=== PATIENT | female | born 2005 | race Caucasian/White ===

== ENCOUNTER 2024-04-25 19:30 | Observation (INO) | payer MEDICAID, SELFPAY ==
--- NOTE | 2024-04-25 | DI.US.S_ITS ---
PROCEDURE: US OB LIMITED INDICATIONS: RIGHT FLANK PAIN; UNCERTAIN DATES OUTSIDE/PRIOR DATING DATA: The calculations are made using the working COREY of 06/27/2024. TECHNIQUE: Real-time scanning was performed of the fetus, with image documentation and biometric measurements. Endovaginal scanning: Not performed COMPARISON: None. FINDINGS: General: A single living intrauterine gestation is present. Presentation: Vertex. Placenta: Placental position is left posterior fundal , without previa. Amniotic fluid index: 14.2 cm, normal range is 5-24 cm. Single deepest vertical pocket is 4.7 cm. heart rate: 163 beats per minute. Maternal cervical canal: 2.9 cm long. Normal lower limit is 2.5 cm. biometrics: Biparietal diameter: 7.9 centimeters, 31 weeks 6 days Head circumference: 28.7 centimeters, 31 weeks 4 days Abdominal circumference: 25.5 centimeters, 29 weeks 5 days Femur length: 5.9 centimeters, 30 weeks 6 days Composite gestational age from present scan: 31 weeks 0 days Estimated weight and percentile: 1570 grams Other: Moderate to severe right-sided pelvocaliectasis of the right maternal kidney. IMPRESSION: Single living intrauterine at 31 weeks 0 days, COREY of 06/27/2024. No abnormality detected. Moderate to severe right-sided maternal pelvocaliectasis, probably physiologic but an obstructive etiology is not excluded. We strive to produce accurate, complete, and clear reports of imaging services. To assist us in improving patient care, this report was composed using standard report templates and voice recognition software. Therefore, it may contain abnormal punctuation, insertions and/or omissions. Occasional wrong-word or sound-alike substitutions may occur. Though we review the report and make efforts to correct it, we do recommend that the report be read carefully in proper context to recognize any text inaccuracies. Dictated by: Tulio Ruiz M.D. on 04/25/2024 at 21:50 Approved by: Tulio Ruiz M.D. on 04/25/2024 at 21:53
--- NOTE | 2024-04-25 20:13 | P.TNLD_ITS ---
Visit Information Visit Information Date of evaluation: 04/25/24 On-call OB Provider: Ophelia West Reason for Evaluation: Yes other Comments/Additional reasons for admission: Right upper quadrant pain in with no care Vital Signs Vital Signs: Blood pressure 118/58, pulse 120, temperature 97.4? Review of Systems Review of Systems Narrative: Patient denies headaches. Denies fevers. Patient states pain started in the left lower quadrant 3 days ago. Pain is now in the right upper quadrant radiating from her back around to the front. She is nauseated. She denies any problems with urination. She feels constipated and has not had a bowel movement today. Baby is moving well. No vaginal bleeding or leakage of fluid. Exam Vital Signs (past 8 hours): Blood pressure 118/50 pulse 120, temperature 97.4 Narrative Exam Narrative: HEENT exam within normal limits. Lungs are clear to auscultation percussion. Heart is regular rate and rhythm. Abdomen is gravid. No tenderness to the uterus. Tenderness in the right upper quadrant without rebound. Extremities without edema and nontender. Objective Imaging US - abdomen: My impression: I watched the ultrasound with the senior technical business analyst. She states normal-appearing gallbladder. Hydronephrosis. Fetus is vertex, size equal to stated EDC of 07/02/2024 30 weeks 2 days. Normal amniotic fluid and posterior left-sided placenta. Labs 04/25/24 20:33 04/25/24 20:33 Evaluation Evaluation Baseline heart rate: 140 Variability: Moderate (11-25) monitor accelerations: Present Monitor Decelerations: Absent Contraction Frequency (minutes): 0 Category of Tracing: Reactive Status: Category l Diagnosis, Plan/Disposition Final Diagnosis (1) 30 weeks gestation of : Status: Acute (2) Upper abdominal pain of unknown etiology: Status: Acute (3) Hydronephrosis determined by ultrasound: Status: Acute (4) Urinary tract infection affecting , antepartum: Status: Acute Plan/Disposition Plan: Keflex for urinary tract infection. Push fluids. Rest on left side to decrease pressure on right urinary collection system causing hydronephrosis. OB Disposition: home
[2024-04-25 20:53] LABS: Add Manual Diff / Slide Review NO; Basophils Absolute Auto 0 /uL (0-100); Basophils Percent Auto 0.2 % (0-2); Eosinophils Absolute Auto 0 /uL (0-450); Eosinophils Percent Auto 0.4 % (2-4); Hemoglobin 11.3 g/dL (12.0-16.0); Lymphocytes Absolute Auto 1500 /uL (1100-4500); Lymphocytes Percent Auto 11.9 % (25-40); Mean Corpuscular HGB Conc 34.1 % (30-36); Mean Corpuscular Hemoglobin 30.6 PG (26-34); Mean Corpuscular Volume 89.7 fL (80-100); Monocytes Absolute Auto 1000 /uL (0-900); Monocytes Percent Auto 7.8 % (3-14); Neutrophils Absolute Auto 9900 /uL (1500-7000); Neutrophils Percent Auto 79.7 % (50-75); Platelet Count 309 X10^3/uL (150-400); Red Blood Cell Count 3.68 X10^6/uL (4.0-5.2); Red Cell Distribution Width 12.3 % (11.6-14.8); White Blood Cell Count 12.4 X10^3/uL (4.5-11.0)
[2024-04-25 20:58] LABS: Alanine Aminotransferase 15 IU/L (<35); Albumin 3.9 g/dL (3.5-5.0); Alkaline Phosphatase 110 U/L (38-126); Aspartate Aminotransferase 19 IU/L (14-36); BUN Creatinine Ratio 9.3 (6-22); Bilirubin Total 0.4 mg/dL (0.2-1.3); Blood Urea Nitrogen 4 mg/dL (7-17); Calcium 8.9 mg/dL (8.4-10.2); Carbon Dioxide 20 mmol/L (22-32); Chloride 102 mmol/L (98-107); Estimated Glomerular Filt Rate > 60 mL/min (>60); Globulin 3.9 g/dL (1.7-4.1); Glucose 96 mg/dL (70-100); HEMOLYSIS < 15 (0-50); Potassium 3.7 mmol/L (3.4-5.1); Sodium 132 mmol/L (137-145); Total Protein 7.8 g/dL (6.3-8.2)
[2024-04-25] MEDS: ACETAMINOPHEN 325 MG TABLET 650 MG PO (21:49)
[2024-04-25 22:02] LABS: Bilirubin Urine UA NEGATIVE (NEGATIVE); Color Urine UA YELLOW; Glucose Urine UA NEGATIVE (Negative); Ketones Urine UA 2+ (NEGATIVE); Leukocyte Esterase Urine UA 3+ (NEGATIVE); Nitrite Urine UA NEGATIVE (Negative); Occult Blood Urine UA 1+ (Negative); Protein Urine UA 2+ (Negative); Specific Gravity Urine UA 1.015 (1.000-1.035); Urobilinogen Urine UA 0.2 E.U./dL (0.2)
[2024-04-25 22:05] LABS: Ur Creatinine Normal (Normal); Ur Specific Gravity Normal (Normal); Urine Amphetamines Negative (Negative); Urine Barbiturates Negative (Negative); Urine Benzodiazepines Negative (Negative); Urine Cocaine Negative (Negative); Urine MDMA Negative (Negative); Urine Methadone Negative (Negative); Urine Methamphetamines Negative (Negative); Urine Opiates Negative (Negative); Urine Oxycodone Negative (Negative); Urine Phencyclidine Negative (Negative); Urine THC Negative (Negative); Urine Tricyclic Antidepressant Negative (Negative); Urine pH Normal (Normal)
[2024-04-25 22:12] LABS: Appearance Urine UA Cloudy; pH Urine UA 6.5 (4.5-8.0)
[2024-04-25 22:18] LABS: Bacteria Urine Many (>30); Culture Indicated Urine Specimen Cultured; RBC Urine None Seen (0-5/HPF); Squamous Epithelial Cell Urine 0-1 /HPF (0-5/HPF); Urine Volume 10mL (spun); WBC Urine 10-30/HPF (0-5/HPF)
[2024-04-25] MEDS: cephALEXin 250 MG CAP PREPACK 1 BOTTLE MISC (22:39)
[2024-04-26 16:52] LABS: Hepatitis B Surface Antigen NEGATIVE s/c (NEGATIVE); Rubella Antibody IgG 13.8 IU/mL (>15)
[2024-04-28 06:37] LABS: RPR Screen Non Reactive (Non Reactive)
== END 2024-04-25 22:40 | disposition home or self-care (01) ==
PROVIDERS: Admitting Provider Specialist; Referring Provider Specialist; Visit Provider Specialist
DX: O99.891 Other specified diseases and conditions complicating pregnancy (principal); R10.11 Right upper quadrant pain; N13.30 Unspecified hydronephrosis; O23.43 Unspecified infection of urinary tract in pregnancy, third trimester; N39.0 Urinary tract infection, site not specified; O26.893 Other specified pregnancy related conditions, third trimester; O09.33 Supervision of pregnancy with insufficient antenatal care, third trimester; Z3A.30 30 weeks gestation of pregnancy
CPT/HCPCS: 36415; 59025; 76815; 80053; 80055; 80305; 81003; 81015; 87077; 87086; 87186; G0378; G0379

== ENCOUNTER → 2024-05-08 15:18 | Outpatient (CLI) | payer MEDICAID, SELFPAY ==
[2024-05-08 17:12] LABS: Add Manual Diff / Slide Review NO; Basophils Absolute Auto 0 /uL (0-100); Basophils Percent Auto 0.3 % (0-2); Eosinophils Absolute Auto 100 /uL (0-450); Eosinophils Percent Auto 0.8 % (2-4); Hemoglobin 10.8 g/dL (12.0-16.0); Lymphocytes Absolute Auto 1700 /uL (1100-4500); Lymphocytes Percent Auto 17.3 % (25-40); Mean Corpuscular HGB Conc 34.9 % (30-36); Mean Corpuscular Hemoglobin 31.2 PG (26-34); Mean Corpuscular Volume 89.3 fL (80-100); Monocytes Absolute Auto 600 /uL (0-900); Monocytes Percent Auto 5.9 % (3-14); Neutrophils Absolute Auto 7500 /uL (1500-7000); Neutrophils Percent Auto 75.7 % (50-75); Platelet Count 316 X10^3/uL (150-400); Red Blood Cell Count 3.47 X10^6/uL (4.0-5.2); Red Cell Distribution Width 12.7 % (11.6-14.8); White Blood Cell Count 9.9 X10^3/uL (4.5-11.0)
[2024-05-08 17:28] LABS: GTT (PREG) 1 Hour PP 50gm Dose 100 mg/dL (76-139)
[2024-05-08 17:59] LABS: Urine N gonorrhoeae NOT DETECTED
[2024-05-08 18:02] LABS: Urine Chlamydia NOT DETECTED
[2024-05-09 06:36] LABS: RPR Screen Non Reactive (Non Reactive)
[2024-05-09 08:11] LABS: Varicella IgG Antibody Reactive (Non Reactive)
[2024-05-11 15:51] LABS: Hepatitis B Surface Antigen NEGATIVE s/c (NEGATIVE); Rubella Antibody IgG 13.2 IU/mL (>15)
[2024-05-11 16:11] LABS: HIV 1 & 2 Ab/Ag 4th Gen Combo NEGATIVE (NEGATIVE); Hep C Virus Ab w/Reflex Quant NEGATIVE s/c (NEGATIVE)
== END ==
PROVIDERS: Referring Provider Student in an Organized Health Care Education/Training Program; Visit Provider Student in an Organized Health Care Education/Training Program
DX: O09.33 Supervision of pregnancy with insufficient antenatal care, third trimester (principal); Z11.3 Encounter for screening for infections with a predominantly sexual mode of transmission; Z3A.32 32 weeks gestation of pregnancy
CPT/HCPCS: 36415; 80055; 82950; 86787; 86803; 86850; 86900; 86901; 87077; 87086; 87186; 87389; 87491; 87591

== ENCOUNTER 2024-05-17 17:34 | Outpatient (CLI) | payer MEDICAID, SELFPAY ==
[2024-05-17 19:14] LABS: Influenza A - CEPHEID Flu A NEGATIVE (NEGATIVE); Influenza B - CEPHEID Flu B NEGATIVE (NEGATIVE); Respiratory Syncytial Virus Negative (Negative)
[2024-05-17 19:15] LABS: COVID-19 CEPHEID 4-PLEX PCR Negative (Negative)
== END 2024-05-17 18:30 | disposition home or self-care (01) ==
LOC: OB 05-18 11:44
PROVIDERS: Referring Provider Obstetrics & Gynecology; Visit Provider Obstetrics & Gynecology
DX: O26.893 Other specified pregnancy related conditions, third trimester (principal); O09.33 Supervision of pregnancy with insufficient antenatal care, third trimester; R11.2 Nausea with vomiting, unspecified; R19.7 Diarrhea, unspecified; R10.9 Unspecified abdominal pain; Z3A.34 34 weeks gestation of pregnancy
CPT/HCPCS: 0241U; 59025; 99281; G0378; G0379

== ENCOUNTER 2024-05-17 18:35 | Emergency (ER) | payer MEDICAID, SELFPAY ==
[2024-05-17 18:39] VITALS: BP 117/67; PULSE 115; RESP 18; TEMP 36.6; O2SAT 98; BMI 243.5
--- NOTE | 2024-05-17 18:54 | ED_ITS ---
HPI - General Adult General Chief complaint: Extremity Injury, Upper Stated complaint: Sent from L&D,31wk Preg; Flu-Like Symptoms Time Seen by Provider: 05/17/24 18:41 Source: patient, family, RN notes reviewed and old records reviewed Mode of arrival: Wheelchair Limitations: language barrier (use assembler wet wash line) History of Present Illness HPI narrative: 18-year-old female A1 with complaint of cough, nasal congestion, sore throat yesterday but not today and discomfort in her epigastric area when she coughs. Patient states no fevers. Has had nasal congestion on symptoms for about 2 days. She describes nasal drainage. She had a sore throat yesterday but not today. She describes cough is nonproductive. No chest pain, no shortness of breath, no nausea or vomiting. No diarrhea or constipation. No urinary symptoms. She has not had any contractions denies abdominal pain. Denies new swelling of her extremities. Patient is on folic acid and vitamin. No known drug allergies. Was seen in [facility] prior to evaluation in the emergency department and cleared to be evaluated in the ED. L&D did send a 4 Plex respiratory swab Related Data Home Medications Medication Instructions Recorded Confirmed vitamin-ferrous sulfate tab PO 04/30/24 05/08/24 27 mg iron-folic acid 0.8 mg tablet Previous Rx's Medication Instructions Recorded acetaminophen 325 mg tablet 650 mg (2 x 325 mg) PO Q4H PRN 04/25/24 Fever/Mild Pain (1-3) #20 tabs cephalexin 500 mg capsule 500 mg PO BID #20 caps 04/25/24 Allergies Allergy/AdvReac Type Severity Reaction Status Date / Time No Known Drug Allergies Allergy Verified 05/08/24 14:33 Review of Systems Review of Systems ROS Unobtainable: All systems reviewed & are unremarkable except as noted in HPI and below Patient History Surgical History H/O dilation and curettage Family History Grandmother Diabetes mellitus Aunt Diabetes mellitus Family/Other Cancer Social History marital status: unmarried,living together number of children: 0 household members: spouse and friend(s) lives independently: Yes caregiver/support person: No housing: house pets and animals: No education level: high school occupational status: unemployed current occupational exposures/hazards: No special trina needs: No travel history: recent (domestic only) seatbelt use: always water heater temp set < 120 deg: Yes working smoke detector in home: No fire extinguisher in home: No carbon monox detector in home: No firearms in home: No do you feel safe at home: Yes Smoking Status: Never smoker second hand exposure: No alcohol intake: former substance use type: does not use well-balanced diet: daily or most days daily servings fruits/ve or more times/day caffeine: No Type(s) of exercise: walking additional social history: Until recently, pt was living with her mother, seems to have been in [place] although the story is a bit difficult to navigate. Pt's mother kicked her and her s/o out of the house and they came up here to live with a friend or family member of her s/o's. Pt refers to him as her spouse but states that they are not legally . Since being kicked out of her mother's home, she is no longer in contact with her and has no relationship with her father (parents are legal NOK), states that she would identify her maternal grandfather (lives in [place]) as her closest relative as he was the one who raised her from 19 months old. Smoking Status: Never smoker Substance Use Type: does not use Exam Narrative Exam Narrative: GEN: well nourished, well appearing female, alert and oriented x 3, patient appears to be in mild distress. HEENT: Atraumatic, pupils are equal round reactive to light, extraocular movements are intact, patient was bilateral nasal congestion, TMs are clear with no fluid, there is no conjunctival pallor. Throat is clear without any exudates, noerythema, tonsillar enlargement or uvular deviation, no stridor or muffled voice HEART: Regular rate and rhythm without murmur, clicks, rubs. LUNGS:Lungs clear to auscultation, no wheezes, rales, crackles, chest moves symmetrically ABD:bowel sounds normal, soft, non-tender, no guarding, rebound, rigidity, no masses noted, no hepatosplenomegaly :No CVA tenderness, gravid, nontender size appropriate for dates. MSCL: Non-tender, no muscle atrophy, muscles strength 5/5 upper and lower extremities, full range of motion, normal gait NEURO:CN 2-12 intact, sensation normal Initial Vital Signs Initial Vital Signs: Vital Signs Temperature 97.8 F 05/17/24 18:39 Pulse Rate 115 H 05/17/24 18:39 Respiratory Rate 18 05/17/24 18:39 Blood Pressure 117/67 05/17/24 18:39 Pulse Oximetry 98 05/17/24 18:39 Oxygen Delivery Method Room Air 05/17/24 18:39 Course Orders Ordered: ED Orders 05/17/24 18:51 Consult to SOLUTION DEVELOPER - Erosion Control Specialist Stat Vital Signs Vital signs: Vital Signs - 8 hr 05/17/24 18:39 Temperature 97.8 F Pulse Rate 115 H Respiratory Rate 18 Blood Pressure 117/67 Pulse Oximetry 98 Oxygen Delivery Method Room Air Medical Decision Making MDM Narrative Medical decision making narrative: 18-year-old female with a exam consistent with upper respiratory infection. Patient is overall well-appearing. She was at L&D prior to this and cleared. They obtained a covid/ influenza/RSV Is negative. patient has a nasal congestion but otherwise lungs are clear she was otherwise well-appearing felt appropriate for discharge home can take Tylenol as needed for fevers or discomfort with return precautions reviewed. Patient did note some issues with the access to transportation, SOLUTION DEVELOPER was not available to meet with them but they will reach out tomorrow. Discharge Plan Departure Patient Disposition: Home Clinical Impression: Upper respiratory infection Instructions: DI for Viral Upper Respiratory Infection -- Adult Activity Restrictions/Additional Instructions: Please follow up for recheck if you are not feeling improved in the next week. Upper respiratory infections typically last about 7-10 days total. Your COVID/influenza/ RSV swab was negative but are were many other viral illnesses that can cause your symptoms. A germination worker should reach out to in the next to 2 days to discuss access to transportation. You can take acetaminophen up to a 1000 mg every 6 hours as needed for pain and/ or fevers. Please avoid ibuprofen, Motrin, naproxen or Aleve. Please return if you have new chest pain or shortness of breath, lightheadedness or passing out, new abdominal pain, persistent vomiting, difficulty breathing or other new or concerning changes. Prescriptions: No Action vit-ferrous sulfat-FA 27 mg iron- 0.8 mg tablet PO acetaminophen 325 mg Tablet 650 mg PO Q4H PRN (Reason: Fever/Mild Pain (1-3)) Qty: 20 0RF cephalexin 500 mg capsule 500 mg PO BID Qty: 20 0RF Referrals: Miscellaneous,Doctor, MD [Primary Care Provider] - Stand Alone Forms: Patient Portal/API/Survey
== END 2024-05-17 19:31 | disposition home or self-care (01) ==
PROVIDERS: Emergency Provider Emergency Medicine
DX: O99.513 Diseases of the respiratory system complicating pregnancy, third trimester (principal); R05.9 Cough, unspecified; R10.13 Epigastric pain; Z3A.31 31 weeks gestation of pregnancy

== ENCOUNTER → 2024-05-20 07:07 | Outpatient (CLI) | payer MEDICAID, SELFPAY ==
--- NOTE | 2024-05-20 07:10 | DI.US.S_ITS ---
PROCEDURE: US OB >= 14 WEEKS FETUS INDICATIONS: Anatomy scan, no care. Late transfer OUTSIDE/PRIOR DATING DATA: Last menstrual period (LMP): Unknown LMP-based estimated date of delivery (COREY): Unknown The calculations are made using the working COREY of 06/27/2024. TECHNIQUE: Real-time scanning was performed of the fetus, with image documentation and biometric measurements. Endovaginal scanning: Not performed COMPARISON: [facility], OB LIMITED, 04/25/2024, 21:03. FINDINGS: General: A single living intrauterine gestation is present. Presentation: Vertex Placenta: Placental position is posterior, without previa. Amniotic fluid index: 13.8 cm, normal range is 5-24 cm. Single deepest vertical pocket is 4.1 cm. heart rate: 140 beats per minute. Maternal cervical canal: Not well seen. biometrics: Biparietal diameter: 8.5 cm, 34 weeks, 1 day. Head circumference: 30.8 cm, 34 weeks, 3 days. Abdominal circumference: 29.9 cm, 33 weeks, 6 days. Femur length: 6.1 cm, 31 weeks, 4 days. Clinically estimated gestational age: 34 weeks, 4 days Composite gestational age from present scan: 33 weeks, 4 days. Estimated weight and percentile: 2158 g, 14% Anatomic survey: Neuro: Not evaluated Nuchal skin fold: Not evaluated Face: Nose and lips, facial profile are normal. Spine: No evidence for spina bifida. Heart: 4-chambered heart is present, with normal ventricular outflow tracts. Diaphragm: Diaphragm is intact. Stomach: Left-sided stomach is present. Kidneys: No hydronephrosis. Normal is less than 5 mm in 2nd trimester, less than 7 mm in 3rd trimester. Cord: 3-vessel cord has orthotopic insertion. Bladder: Normal in size. Extremities: All 4 extremities identified. IMPRESSION: 1. Single live intrauterine gestation with fetus in vertex presentation. heart rate is 140 beats per minute. Normal LISSETTE at 13.8 cm. Estimated weight is at 14%. 2. Slightly limited evaluation due to late gestational age. neural structures and no cul skin full are not evaluated on this study. Rest of the anatomic survey is normal. We strive to produce accurate, complete, and clear reports of imaging services. To assist us in improving patient care, this report was composed using standard report templates and voice recognition software. Therefore, it may contain abnormal punctuation, insertions and/or omissions. Occasional wrong-word or sound-alike substitutions may occur. Though we review the report and make efforts to correct it, we do recommend that the report be read carefully in proper context to recognize any text inaccuracies. Dictated by: Royce Travis M.D. on 05/20/2024 at 13:07 Approved by: Royce Travis M.D. on 05/20/2024 at 13:10
--- NOTE | 2024-05-20 15:25 | CM.SWNOTE ---
ED THREE KNIFE TRIMMER follow up Note THREE KNIFE TRIMMER received consult from patient's ED presentation on 05/18/24 due to concern for transportation insecurity when getting to medical appts. THREE KNIFE TRIMMER contacts family member caretaker in PCP clinics and offers to provide patient with 5 [place] transit day bus passes to get to the next several OBGYN appts. THREE KNIFE TRIMMER provides these bus passes to [facility] who coordinates with patient's OBGYN's MURPHY Benson to provide these to patient's boyfriend. Katey Hernandez, DRILLER'S ASSISTANT
== END ==
PROVIDERS: Referring Provider Student in an Organized Health Care Education/Training Program; Visit Provider Student in an Organized Health Care Education/Training Program
DX: Z34.83 Encounter for supervision of other normal pregnancy, third trimester (principal); Z3A.33 33 weeks gestation of pregnancy
CPT/HCPCS: 76811

== ENCOUNTER → 2024-06-01 14:14 | Outpatient (CLI) | payer MEDICAID, SELFPAY ==
[2024-06-02 14:17] LABS: Strep Grp B PCR NEG for Grp B Strep
== END ==
PROVIDERS: Visit Provider Student in an Organized Health Care Education/Training Program
DX: Z34.03 Encounter for supervision of normal first pregnancy, third trimester (principal); Z3A.36 36 weeks gestation of pregnancy
CPT/HCPCS: 87653

== ENCOUNTER 2024-06-30 14:12 | Inpatient (IN) | payer MEDICAID, SELFPAY ==
[2024-06-30 15:42] LABS: Add Manual Diff / Slide Review NO; Basophils Absolute Auto 100 /uL (0-100); Basophils Percent Auto 0.5 % (0-2); Eosinophils Absolute Auto 100 /uL (0-450); Eosinophils Percent Auto 0.5 % (2-4); Hematocrit 33.5 % (36-46); Hemoglobin 11.2 g/dL (12.0-16.0); Lymphocytes Absolute Auto 2100 /uL (1100-4500); Lymphocytes Percent Auto 16.8 % (25-40); Mean Corpuscular HGB Conc 33.4 % (30-36); Mean Corpuscular Volume 86.7 fL (80-100); Monocytes Absolute Auto 900 /uL (0-900); Monocytes Percent Auto 7.2 % (3-14); Neutrophils Absolute Auto 9500 /uL (1500-7000); Platelet Count 311 X10^3/uL (150-400); Red Blood Cell Count 3.87 X10^6/uL (4.0-5.2); Red Cell Distribution Width 13.7 % (11.6-14.8); White Blood Cell Count 12.6 X10^3/uL (4.5-11.0)
--- NOTE | 2024-06-30 17:44 | PM.OBHP.1 ---
OB HPI Date/Time Date of admission: 06/30/24 Date Patient Seen: 06/30/24 Time Patient Seen: 17:44 History of Present Condition Chief complaint: LABOR CHECK : 2 Para: 0 Estimated Date of Delivery: 06/27/24 Estimated Gestational Age (weeks): 40+3 Narrative: Jacinda Bill is a 18 year old female presented with PROM at 0600 this morning. She reported clear fluid. Had some irregular painful contractions. Reported regular movement. History of Present care: limited care Dating criteria: based on 3rd trimester US only Ultrasounds: other (normal anatomy US at 33wks) Narrative: COREY Calculator Estimated Delivery Date Method Current WG Current Estimate 06/27/24 Ultrasound #1 40w 2d Other Estimates 07/26/24 LMP (Uncertain) 36w 1d Ultrasound Ultrasound Details:: 3rd trimester dating US: posterior placenta, vertex presentation, EGA 31+0wks Anatomy US 05/20/24: posterior placenta, vertex presentation, EFW 14%ile, normal anatomy however limited by GA Specific Issues/Plans Anemia of --> H/H 10.8/31.0 at 33wks Late to care, 1st visit triage @30 wk Dutch speaking only Rubella NI S/O Moshe Assigned to [facility] Preadmission Labs Blood type: O (+) positive -: Antibody screen: negative, Cystic fibrosis screen: unknown, GBS status: negative, HBsAG: negative, HIV: negative, HSV 1: unknown, HSV 2: unknown and RPR/VDLR: negative -: Chlamydia screen: not detected and Gonorrhea screen: not detected -: Rubella: not immune and Varicella: immune HCT: 33.5 HCAB: negative 1 hr GTT: 100 Evaluation Evaluation Baseline heart rate: 130 Variability: Moderate (11-25) monitor accelerations: Present Monitor Decelerations: Absent Contraction Frequency (minutes): 3 Uterine Contraction Intensity: Moderate Status: Category l Dilation (cm): 3 Effacement (%): 75 station: -1 Non-invasive Membranes Rupture Test: positive PFSH Surgical History H/O dilation and curettage Family History Grandmother Diabetes mellitus Aunt Diabetes mellitus Family/Other Cancer Social History marital status: unmarried,living together number of children: 0 household members: spouse and friend(s) lives independently: Yes caregiver/support person: No housing: house pets and animals: No education level: high school occupational status: unemployed current occupational exposures/hazards: No special trina needs: No travel history: recent (domestic only) seatbelt use: always water heater temp set < 120 deg: Yes working smoke detector in home: No fire extinguisher in home: No carbon monox detector in home: No firearms in home: No do you feel safe at home: Yes Smoking Status: Never smoker second hand exposure: No alcohol intake: former substance use type: does not use well-balanced diet: daily or most days daily servings fruits/ve or more times/day caffeine: No Type(s) of exercise: walking additional social history: Until recently, pt was living with her mother, seems to have been in [place] although the story is a bit difficult to navigate. Pt's mother kicked her and her s/o out of the house and they came up here to live with a friend or family member of her s/o's. Pt refers to him as her spouse but states that they are not legally . Since being kicked out of her mother's home, she is no longer in contact with her and has no relationship with her father (parents are legal NOK), states that she would identify her maternal grandfather (lives in [place]) as her closest relative as he was the one who raised her from 19 months old. Meds Home Medications and Allergies Home Medications Medication Instructions Recorded Confirmed Type acetaminophen 325 mg tablet 650 mg (2 x 325 mg) PO Q4H PRN 04/25/24 06/30/24 Rx Fever/Mild Pain (1-3) #20 tabs cephalexin 500 mg capsule 500 mg PO BID #20 caps 04/25/24 06/29/24 Rx vitamin-ferrous sulfate tab PO 04/30/24 06/29/24 History 27 mg iron-folic acid 0.8 mg tablet ferrous sulfate 325 mg (65 mg 325 mg PO Q OTHER DAY #60 tabs 05/18/24 06/29/24 Rx iron) tablet,delayed release Allergies Allergy/AdvReac Type Severity Reaction Status Date / Time No Known Drug Allergies Allergy Verified 06/01/24 11:41 Review of Systems Review of Systems ROS: Yes All systems reviewed with the patient and are negative except as otherwise documented OB Exam Vital signs Blood Pressure: 113/55 Pulse Rate: 96 Temperature: 97.3 F HENMT Head: normal to inspection Resp Effort & Inspection: normal respiratory effort and able to speak in complete sentences Extremities Lower extremity: Yes normal to inspection GI Other: gravid, nontender, nondistended Objective Labs 06/30/24 15:10 Labs: Laboratory Results - last 24 hr 06/30/24 15:10 WBC 12.6 H RBC 3.87 L Hgb 11.2 L Hct 33.5 L MCV 86.7 MCH 29.0 MCHC 33.4 RDW 13.7 Plt Count 311 Neut % (Auto) 75.0 Lymph % (Auto) 16.8 L [place] % (Auto) 7.2 Eos % (Auto) 0.5 L Baso % (Auto) 0.5 Neut # (Auto) 9500 H Lymph # (Auto) 2100 [place] # (Auto) 900 Eos # (Auto) 100 Baso # (Auto) 100 Blood Type O Positive Antibody Screen Negative Assessment and Plan Assessment and Plan Assessment and Plan narrative: 18yo at 40+3wks admitted in early labor with ruptured membranes. -CBC, T&S on admission -continuous EFM -epidural PRN -GBS neg, ppx not indicated -PPH risk low -VTE risk low, SCDs with epidural -anticipate L&D Counseling: Common procedures and interventions related to the management of were explained to the patient, including assistance at vaginal delivery with episiotomy, vacuum, or forceps, use of medications to stop premature labor or induce labor, and assessment including auscultation (listening to the heart), use of electronic monitoring (external and / or internal), and use of scalp electrode and/or intrauterine pressure catheter.? It was also explained that approximately 20-30% of mothers have a need for delivery during their labor course. It was explained to the patient that , labor and delivery are ordinarily normal physiological events and can be expected to provide a healthy outcome for mother and baby in the majority of cases. However, there are complications that may arise during , labor, and delivery, such as: hemorrhage requiring administration of blood and/or blood products, surgical intervention, possibly even hysterectomy for life-saving purposes; possibility of infection requiring antibiotics, prolonged hospital stay, and rarely surgical intervention; possibility of blood clots;? possibility of retained products of conception requiring surgical intervention;? possibility of serious tears or injury to the vagina, cervix, perineum, or rectum;? possibility of injury to abdominal structures if delivery is required;? and rarely maternal or may occur. All of her counseling and interview was completed with a Z[employer] security system analyst via the hospital translation service. Time-Based Coding :: [30min] spent with patient and on the chart (including review of chart, obtaining history, exam, reviewing outside data, placing orders, documenting exam and treatment plan, and counseling patient) on [06/30/24].
[2024-06-30 17:52] VITALS: BP 113/55; PULSE 96; TEMP 36.3
[2024-06-30] MEDS: LACTATED RINGERS 1,000 ML 100 ML IV ×2 (19:30→23:53)
--- NOTE | 2024-06-30 19:52 | PM.AN.REGBLK ---
Regional Block Pre-procedure Procedure: Continuous Lumbar Epidural for L&D PMH/ROS narrative: lora for active labor. conference translator utilized. ASA Class: II Labs: Hct 33.5 % (36-46) L 06/30/24 15:10 Plt Count 311 X10^3/uL (150-400) 06/30/24 15:10 Medications: Current Medications Generic Name Dose Route Start Last Admin Trade Name Freq PRN Reason Stop Dose Admin Carboprost Tromethamine 250 mcg 06/30/24 15:21 Carboprost 250 Mcg/Ml Ampul IM Q90M PRN Bleeding Lactated Ringer's 1,000 mls @ 100 mls/hr 06/30/24 15:30 Lactated Ringers IV 07/01/24 01:29 CONT JUAN Oxytocin/Lactated Ringer's 30 unit in 500 mls @ 200 mls/hr 06/30/24 15:21 Oxytocin Premix IV CONT PRN Bleeding Protocol Tranexamic Acid 1,000 mg/ 100 mls @ 600 mls/hr 06/30/24 15:21 Sodium Chloride IV NOW PRN Bleeding Lidocaine HCl 20 ml 06/30/24 15:21 Lidocaine 1% 20 Ml INJ INTRA-OP PRN Post Delivery Methylergonovine Maleate 0.2 mg 06/30/24 15:21 Methylergonovine 0.2 Mg Tablet PO Q6HR PRN Heavy Bleeding Methylergonovine Maleate 0.2 mg 06/30/24 15:21 Methylergonovine 0.2 Mg/Ml Vial IM NOW PRN Bleeding Mineral Oil 30 ml 06/30/24 15:21 Mineral Oil 30 Ml Udc TOP PRN PRN Version Misoprostol 800 mcg 06/30/24 15:21 Misoprostol 200 Mcg Tablet UT NOW PRN Bleeding Misoprostol 400 mcg 06/30/24 15:21 Misoprostol 200 Mcg Tablet SL NOW PRN Bleeding Naloxone HCl 0.2 mg 06/30/24 15:21 Naloxone 0.4 Mg/Ml Vial IV Q2MIN PRN Opiate Reversal Oxytocin 10 unit 06/30/24 15:21 Oxytocin 10 Unit/Ml Vial IM NOW PRN Bleeding Allergies: Allergies Allergy/AdvReac Type Severity Reaction Status Date / Time No Known Drug Allergies Allergy Verified 06/01/24 11:41 Procedure Insertion date: 06/30/24 Insertion time: 19:27 Prep/Local: betadine x3 (chloraprep) and 1% lidocaine Interspace: l3 l4 Patient position: sitting Needle: 18 gauge Hustead Loss of resistance with: saline HYACINTH at (cm): 6 Catheter placed at SKIN (cm): 15 Insertion: No CSF, No Blood, No Paresthesia with insertion, No Paresthesia with injection and No Test dose reaction Initial Medications TEST DOSE time: 19:30 TEST DOSE: 1.5% lidocaine with epinephrine 1:200k (mL): 3 BOLUS DOSE time: 19:34 BOLUS DOSE (mL): 3 BOLUS DOSE med: other (pump) Infusion INFUSION: with fentanyl 2 mcg/mL and 0.0625% bupivacaine Initial rate (mL/hr): 8 Post-procedure Anesthesia date START: 06/30/24 Anesthesia time START: 19:10 Anesthesia date END: 07/01/24 Anesthesia time END: 03:33 Post-procedure Anesthesia Assessment: Yes CV function: HR/BP stable, Yes Resp function: RR/sat/airway adequate, Yes Post-op hydration adequate, Yes Pain control adequate, Yes Nausea & vomiting absent, Yes Temperature > 36 C, Yes Mental status appropriate and No Anesthesia complications
[2024-06-30] MEDS: OXYTOCIN PREMIX 30 UNIT/500 ML PLAST..BAG IV (23:53)
--- NOTE | 2024-07-01 02:39 | PM.OBPNLAB ---
Date/Time Date Patient Seen: 07/01/24 Time Patient Seen: 02:40 Pain Control Pain control: epidural Pelvic Exam Dilation (cm): 10 Effacement (%): 100 station: +1 Amniotic membrane status: Ruptured Contractions Pitocin rate (mU/min): 4 Contraction intensity: Moderate Status status: Category ll Heart Rate Baseline: 140 Monitor Accelerations: Present Monitor Decelerations: Early and Late Monitor Variability: Moderate Assessment and Plan Assessment: active labor Plan: continuous present management Comments: 18yo at 40+4wks now completely dilated and pushing efforts started at 0200. -continue pushing efforts -anticipate
--- NOTE | 2024-07-01 03:53 | P.PCNOB_ITS ---
Events: Premature Rupture Membrane Labor & Delivery Delivery date: 07/01/24 Delivery Time: 03:28 Intrapartal Events: None Delivery augmentation: pitocin Delivery monitor: external FHT and external uterine Route of delivery: L&D Laceration Description: Perineal - 1st Degree Delivery repair: vicryl Quantitative Blood Loss: 136 Anesthesia Type: Epidural Complications: none Narrative: The patient progressed to C/C/+1 with pitocin augmentation and epidural anesthesia. After approximately 1.5hrs of maternal pushing efforts, the infant delivered in OA position and restituted ROT. The anterior shoulder delivered with gentle downward pressure. The posterior shoulder and rest of body delivered with ease. The cord was doubly clamped and cut after a 60sec delay with the placed on maternal abdomen. The placenta delivered spontaneously and was intact with a 3-vessel cord. The fundus was noted to be firm with bimanual massage and pitocin. Inspection of the cervix, vagina, and perineum was notable for a 1st degree perineal laceration. Repair was performed using 3-0 Vicryl in a running, unlocked fashion. At the end of the repair, all tissues noted to be hemostatic. All sponges were removed from the vagina. The patient tolerated delivery well and remained in the labor room with the infant at the bedside. [place] Baby 1: gender: Female Presentation: vertex Placenta delivery description: Spontaneous Cord Vessel Description: 3 Vessels score (1 min): 9 score (5 min): 9 weight: 5 lb 15.628 oz Plan for aftercare: Routine care
[2024-07-01] MEDS: IBUPROFEN 600 MG TABLET PO ×3 (06:00→20:33)
[2024-07-01] MEDS: ACETAMINOPHEN 325 MG TABLET 650 MG PO ×3 (06:00→23:47)
[2024-07-01] MEDS: LANOLIN OINT 7 GM 1 APPLIC TOP (06:01)
[2024-07-01] MEDS: DERMOPLAST SPRAY 20% 60 ML 1 SPRAY TOP (06:01)
[2024-07-01] MEDS: FERROUS SULFATE 325 MG TABLET PO (10:14)
[2024-07-01] MEDS: PRENATAL VIT,CALC/IRON/FOLIC 1 TABLET 1 TAB PO (10:14)
[2024-07-01] MEDS: DOCUSATE 100 MG CAPSULE PO (10:15)
--- NOTE | 2024-07-01 16:58 | P.PNOB_ITS ---
Subjective - OB Subjective Patient comments: no complaints and pain well controlled [place] baby status: doing well and nursing well feeding status: exclusively breast feeding Narrative: Patient resting in bed, at breast. Denies pain, notes mild discomfort with urination, lochia less than menses. Date Patient Seen: 07/01/24 Time Patient Seen: 16:00 Interval history: 18yo PPD0 s/p of LBFI at approx 0330 this AM, doing well Exam Vital Signs (past 8 hours): maternal VSS/afebrile, reviewed in OBIX Const General: cooperative, healthy appearing and comfortable Nutritional Appearance: average body habitus Orientation: alert, awake and oriented x3 Limitations: mental status not altered Resp Effort & Inspection: normal respiratory effort and able to speak in complete sentences Cardio Pulses: normal peripheral pulses GI Other: fundus firm << umb, non-tender Other: deferred Skin General: no rashes or lesions noted Neuro General: patient alert, patient awake and patient oriented x3 Extrem General: normal to inspection Psych Mental Status: mental status grossly normal Judgment: judgment good Objective Labs 06/30/24 15:10 Assessment & Plan Plan day: 0 plan OB: routine care Comments: 18yo PPD0 s/p of LBFI, doing well routine care , support PRN O+, rubella non-immune --> MMR at discharge readdress contraception prior to dc anticipate dc to home PPD1-2 pending clinical course, clearance per peds Time-Based Coding :: [TOTAL MINUTES] spent with patient and on the chart (including review of chart, obtaining history, exam, reviewing outside data, placing orders, documenting exam and treatment plan, and counseling patient) on [DATE].
[2024-07-01] MEDS: WITCH HAZEL/GLYCERIN PADS 1 EACH TOP (18:09)
[2024-07-02] MEDS: IBUPROFEN 600 MG TABLET PO ×2 (03:23→08:57)
[2024-07-02] MEDS: ACETAMINOPHEN 325 MG TABLET 650 MG PO (06:47)
--- NOTE | 2024-07-02 08:16 | PM.OBDS.1 ---
Discharge Providers Provider Date of admission: 06/30/24 14:12 Discharge Date: 07/02/24 Primary care physician: Doctor Lotus MD Consults: 06/30/24 15:21 Consult to Anesthesiology Urgent Comment: Consulting Provider: Anesthesiologist Reason for consultation: Epidural 07/02/24 03:51 Consult to Engineering Specialist Routine Comment: Discharge provider: Roxanna Dick DO Summary Hospital Course Date Patient Seen: 07/02/24 Time Patient Seen: 08:16 Diagnoses: Term gestation at 40+4wks Prelabor rupture of membranes Hospital Course: 18yo [id number] admitted at 40+3wks after prelabor rupture of membranes. She progressed to an uncomplicated spontaneous vaginal delivery, productive of a viable female . Her course was unremarkable. On day #2, she was ambulating, tolerating regular diet, voiding spontaneously with minimal lochia. Her pain was well controlled with oral medications, thus she was discharged to home on day #2. Peripartum Data Delivery Method: Natural Vaginal Laceration Description: Perineal - 1st Degree Procedures: External monitoring Epidural anesthesia Labor augmentation Spontaneous vaginal delivery Obstetrical laceration repair complications: none 1: Gender: Female Disposition of : home Discharge Diagnosis (1) Vaginal delivery: Status: Acute (2) Delivery outcome of single liveborn : Status: Acute (3) Rubella non-immune status, antepartum: Status: Acute (4) Late care affecting : Status: Acute (5) 40 weeks gestation of : Status: Acute Status at Discharge Cognitive/behavioral status at discharge: oriented Functional status at discharge: independent ambulation Overall status at discharge: patient is progressing back to baseline Time Spent with Patient Time attestation: Total time spent providing and/or coordinating discharge services: Time spent: Less than 30 minutes Objective Labs 06/30/24 15:10 Exam Vital Signs (past 8 hours): vitals reviewed in OBIX, within normal parameters Const General: cooperative, healthy appearing, comfortable and No acute distress Resp Effort & Inspection: normal respiratory effort GI Inspection: normal to inspection Other: fundus firm and nontender at U-2 Skin General: no rashes or lesions noted Neuro General: patient alert and patient awake Extrem General: normal to inspection, no pedal edema and no calf tenderness Psych Mood: congruent mood Affect: normal affect Discharge Plan Discharge Plan Patient Disposition: Home Provider Discharge Comment: Take ibuprofen 600mg every 6hrs or acetaminophen 650mg every 6hrs as needed for pain. Avoid placing anything in the vagina for 6 weeks. Discharge orders & Medications Prescriptions: Continued vit-ferrous sulfat-FA 27 mg iron- 0.8 mg tablet 1 tab PO DAILY acetaminophen 325 mg Tablet 650 mg PO Q4H PRN (Reason: Fever/Mild Pain (1-3)) Qty: 20 0RF Discontinued ferrous sulfate 325 mg (65 mg iron) tablet,delayed release (DR/EC) 325 mg PO Q OTHER DAY Qty: 60 0RF Rx Instructions: take 1 tab every other day cephalexin 500 mg capsule 500 mg PO BID Qty: 20 0RF Follow up/Referrals: Roxanna Dick DO [Physician] - 6 Weeks (Please follow up with Dr. Dick on August 11 @ 1015 am. Please call the clinic with any questions. ) Diet/Activity/Treatments Diet: Diet as Tolerated Activity: As tolerated. Skin/Wound/Dressing Care Report to your healthcare provider any signs of infection, such as:: chills, fever, increased pain and unusual drainage Visit Report/Discharge Packet Instructions: DI for Labor and Delivery, Vaginal Stand Alone Forms: Discharge: Care, Patient Portal/API, Stroke Signs & Symptoms Discharge Data Primary Care Provider: Miscellaneous,Doctor
[2024-07-02] MEDS: FERROUS SULFATE 325 MG TABLET PO (08:57)
[2024-07-02] MEDS: DOCUSATE 100 MG CAPSULE PO (08:57)
[2024-07-02] MEDS: PRENATAL VIT,CALC/IRON/FOLIC 1 TABLET 1 TAB PO (08:57)
== END 2024-07-02 10:00 | disposition home or self-care (01) | DRG 807 ==
PROVIDERS: Admitting Provider Student in an Organized Health Care Education/Training Program; Referring Provider Student in an Organized Health Care Education/Training Program; Visit Provider Student in an Organized Health Care Education/Training Program
DX: O42.02 Full-term premature rupture of membranes, onset of labor within 24 hours of rupture (principal); Z37.0 Single live birth; Z3A.40 40 weeks gestation of pregnancy; O70.0 First degree perineal laceration during delivery
CPT/HCPCS: 59050; 59409; 84112; 85025; 86850; 86900; 86901; G0379; J2590

== ENCOUNTER → 2025-03-06 09:34 | Outpatient (CLI) | payer MEDICAID, SELFPAY ==
[2025-03-06 10:21] LABS: Appearance Urine UA CLEAR; Bilirubin Urine UA NEGATIVE (NEGATIVE); Color Urine UA YELLOW; Glucose Urine UA NEGATIVE (Negative); Ketones Urine UA NEGATIVE (NEGATIVE); Leukocyte Esterase Urine UA NEGATIVE (NEGATIVE); Nitrite Urine UA NEGATIVE (Negative); Occult Blood Urine UA NEGATIVE (Negative); Protein Urine UA NEGATIVE (Negative); Specific Gravity Urine UA 1.025 (1.000-1.035); Urobilinogen Urine UA 0.2 E.U./dL (0.2)
[2025-03-06 10:30] LABS: pH Urine UA 6.0 (4.5-8.0)
[2025-03-06 10:35] LABS: Culture Indicated Urine Cult Not Indicated
[2025-03-06 11:12] LABS: Add Manual Diff / Slide Review NO; Hematocrit 37.3 % (36-46); Hemoglobin 12.5 g/dL (12.0-16.0); Lymphocytes Absolute Auto 2200 /uL (1100-4500); Mean Corpuscular HGB Conc 33.6 % (30-36); Mean Corpuscular Hemoglobin 27.8 PG (26-34); Mean Corpuscular Volume 82.7 fL (80-100); Platelet Count 286 X10^3/uL (150-400)
[2025-03-06 11:21] LABS: Hemoglobin A1C% w Est Avg Glu 5.4 % (4.0-6.0)
[2025-03-06 11:25] LABS: Alanine Aminotransferase 72 IU/L (<35); Albumin 4.4 g/dL (3.5-5.0); Albumin Globulin Ratio 1.3 (1.0-2.8); Alkaline Phosphatase 126 U/L (38-126); Blood Urea Nitrogen 10 mg/dL (7-17); Calcium 9.1 mg/dL (8.4-10.2); Carbon Dioxide 24 mmol/L (22-32); Chloride 105 mmol/L (98-107); Cholesterol 249 mg/dL (140-199); Estimated Glomerular Filt Rate > 60 mL/min (>60); Globulin 3.4 g/dL (1.7-4.1); Glucose 102 mg/dL (70-99); HDL Cholesterol 43 mg/dL (40-60); HEMOLYSIS < 15 (0-50); Iron 78 ug/dL (37-170); Potassium 4.7 mmol/L (3.4-5.1); Sodium 139 mmol/L (137-145); Total Protein 7.8 g/dL (6.3-8.2); Triglycerides 264 mg/dL (35-150)
[2025-03-06 11:39] LABS: Percent Iron Saturation 21 % (15-50); Total Iron Binding Capacity 368 ug/dL (265-497); Transferrin 314 mg/dL (206-381)
[2025-03-06 11:42] LABS: Vitamin D 25 Hydroxy (D3) 20.6 ng/mL (30.0-100.0)
[2025-03-06 11:58] LABS: TSH w/ Reflex to FT4 1.17 uIU/mL (0.47-4.68)
[2025-03-06 12:00] LABS: Ferritin 18 ng/mL (6-137)
== END ==
PROVIDERS: Referring Provider Family Medicine; Visit Provider Family Medicine
DX: L83 Acanthosis nigricans (principal); R00.2 Palpitations; E66.811 Obesity, class 1; D64.9 Anemia, unspecified; Z83.3 Family history of diabetes mellitus; R35.0 Frequency of micturition; Z13.21 Encounter for screening for nutritional disorder
CPT/HCPCS: 36415; 80053; 80061; 81001; 82306; 82728; 83036; 83540; 83550; 84443; 85025